=== PATIENT | male | born 1970 | race Caucasian/White ===

== ENCOUNTER 2020-04-15 19:22 | Emergency (ER) | payer MEDICAID ==
--- NOTE | 2020-04-15 20:10 | EDM.PDOC ---
ED HPI GENERAL MEDICAL PROBLEM - General Chief Complaint: Chest Pain Stated Complaint: CHEST PRESSURE DIZZY HEADACHE Time Seen by Provider: 04/15/20 19:32 Source of Information: Reports: Patient, Significant Other (Girlfriend) History Limitations: Reports: No Limitations - History of Present Illness INITIAL COMMENTS - FREE TEXT/NARRATIVE: Mr. Singh is a very pleasant 49-year-old gentleman who now presents to the ED stating that he has had 2 weeks of occasional retrosternal pressure - a discomfort, not a pain - and dizzy spells. Tonight his dizzy spells led to a throbbing sensation in his head and neck. When present, the patient states that his retrosternal chest discomfort will typically last about 2 minutes, and recur only once or twice a day. They may or may not be associated with his dizziness, by which he means lightheadedness. No associated dyspnea, nausea, or diaphoresis, however, the patient does state that he feels anxious when his symptoms are present. He has not identified any positions or activities that will precipitate or alleviate his symptoms - they seem to come on randomly, even when the patient is at rest. He denies any recent limitation in his exertional abilities. No prior similar symptoms. The patient states that he has not taken any [id number] or home remedies to try to treat any of his symptoms. No prior medical evaluation for this complaint. Here in the ED, the patient's initial BP is found to be slightly elevated at 132/52, otherwise, he is hemodynamically stable, afebrile, saturating 99% on room air. Prior to 2 weeks ago, the patient denies having a recent fever, chills, sore throat, ear pain, nasal or sinus congestion, cough, dyspnea, chest pain, palpitations, nausea, vomiting, constipation, diarrhea, abdominal pain, urinary symptoms, recent weight gain or weight loss, recent bloody bowel movements or black bowel movements, recent joint aches, headaches, or rashes. The patient's PCP is BERTIN Rosa, at the [facility]. He has not received an influenza vaccine this season, but agreed to receive one here in the ED. Left Chest Pain Score (Numeric/FACES): 2 - Related Data Allergies Allergy/AdvReac Type Severity Reaction Status Date / Time No Known Allergies Allergy Verified 04/15/20 19:41 Home Meds: Home Meds Acetaminophen/oxyCODONE [Percocet 325-5 MG] 5 - 325 mg PO BEDTIME PRN 04/15/20 [History] Furosemide [Lasix] 100 mg PO DAILY PRN 04/15/20 [History] Losartan/Hydrochlorothiazide [Losartan-HCTZ 50-12.5 MG] 1 tab PO DAILY PRN 04/15/20 [History] Past Medical History Cardiovascular History: Reports: Hypertension (untreated) Respiratory History: Reports: Sleep Apnea (nightly nasal CPAP 13) Gastrointestinal History: Reports: GERD Musculoskeletal History: Reports: Osteoarthritis Psychiatric History: Reports: Anxiety (untreated), Depression (untreated) Endocrine/Metabolic History: Reports: Obesity/BMI 30+ - Past Surgical History HEENT Surgical History: Reports: Tonsillectomy Neurological Surgical History: Reports: Lumbar Spine (fusion) Musculoskeletal Surgical History: Reports: Arthroscopic Knee (left x 2, right x 1), Arthroscopic Procedure (right elbow x 3) Social & Family History - Tobacco Use Tobacco Use Status *Q: Never Tobacco User - Caffeine Use Caffeine Use: Reports: Soda - Alcohol Use Alcohol Use History: Yes Alcohol Use Frequency: Rarely - Recreational Drug Use Recreational Drug Use: No - Living Situation & Occupation Living situation: Reports: Single, with Significant Other (Girlfriend), with Family (His son + his girlfriend's son) Occupation: Disabled ED ROS GENERAL - Review of Systems Review Of Systems: Comprehensive ROS is negative, except as noted in HPI. ED EXAM, GENERAL - Physical Exam Exam: See Below Exam Limited By: No Limitations General Appearance: Alert, WD/WN, No Apparent Distress Eye Exam: Bilateral Eye: EOMI, Normal Inspection Ears: Normal External Exam, Hearing Grossly Normal Nose: Normal Inspection Throat/Mouth: Normal Inspection, Normal Lips, Normal Voice, No Airway Compromise Head: Atraumatic, Normocephalic Neck: Normal Inspection, Full Range of Motion Respiratory/Chest: No Respiratory Distress, Lungs Clear, Normal Breath Sounds, No Accessory Muscle Use, Chest Non-Tender (also, pain not induced with flexion of pectoralis muscles) Cardiovascular: Normal Peripheral Pulses, Regular Rate, Rhythm, No Gallop, No JVD, No Murmur, No Rub Peripheral Pulses: 3+: Radial (L), Radial (R) GI/Abdominal: Normal Bowel Sounds, Soft, Non-Tender (including the epigastrium), No Organomegaly, No Distention, No Abnormal Bruit, No Mass Back Exam: Normal Inspection, Full Range of Motion, NT Extremities: Normal Inspection, Normal Range of Motion, No Pedal Edema, Normal Capillary Refill Neurological: Alert, Oriented, Normal Cognition, No Motor/Sensory Deficits Psychiatric: Normal Affect Skin Exam: Warm, Dry, Intact, Normal Color, No Rash #1 Interpretation EKG Date: 04/15/20 Time: 19:37 Rhythm: NSR Rate (Beats/Min): 97 [place]: Normal P-Wave: Present QRS: Normal ST-T: Normal QT: Normal Comparison: NA - No Prior EKG Course - Vital Signs Last Recorded V/S: Last Vital Signs Temp 36.5 C 04/15/20 19:34 Pulse 94 04/15/20 19:34 Resp 21 H 04/15/20 19:34 BP 132/52 L 04/15/20 19:34 Pulse Ox 99 04/15/20 19:34 - Orders/Labs/Meds Orders: Active Orders 24 hr Category Date Time Status EKG Documentation Completion [RC] STAT Care 04/15/20 19:40 Active Chest 2V [CR] Stat Exams 04/15/20 20:05 Taken Sodium Chloride 0.9% [Normal Saline] 1,000 ml Med 04/15/20 21:45 Active IV ASDIRECTED Medication Orders Sodium Chloride (Normal Saline) 1,000 mls @ 150 mls/hr IV ASDIRECTED TA Last Admin: 04/15/20 21:43 Dose: 150 mls/hr Documented by: DONNY Labs: Laboratory Tests 04/15/20 04/15/20 04/15/20 Range/Units 20:45 20:48 20:48 WBC 9.13 H (4.23-9.07) K/mm3 RBC 5.12 (4.63-6.08) M/mm3 Hgb 14.5 (13.7-17.5) gm/dl Hct 47.2 (40.1-51.0) % MCV 92.2 (79.0-92.2) fl MCH 28.3 (25.7-32.2) pg MCHC 30.7 L (32.2-35.5) g/dl RDW Std Deviation 47.5 H (35.1-43.9) fL Plt Count 353 H (163-337) K/mm3 MPV 9.5 (9.4-12.3) fl Neutrophils % (Manual) 60 (40-60) % Band Neutrophils % 0 (0-10) % Lymphocytes % (Manual) 32 (20-40) % Atypical Lymphs % 2 % Monocytes % (Manual) 1 L (2-10) % Eosinophils % (Manual) 5 (0.8-7.0) % Basophils % (Manual) 0 L (0.2-1.2) Platelet Estimate Adequate Hypochromasia Few PT 11.4 (9.7-12.0) SECONDS INR 1.07 APTT 27.6 (21.7-31.4) SECONDS D-Dimer, Quantitative 0.94 H (0.19-0.50) mg/L Sodium (136-145) mEq/L Potassium (3.5-5.1) mEq/L Chloride (98-107) mEq/L Carbon Dioxide (21-32) mEq/L Anion Gap (5-15) BUN (7-18) mg/dL Creatinine (0.7-1.3) mg/dL Est Cr Clr Drug Dosing mL/min Estimated GFR (MDRD) (>60) mL/min BUN/Creatinine Ratio (14-18) Glucose (74-106) mg/dL Calcium (8.5-10.1) mg/dL Magnesium (1.8-2.4) mg/dl Total Bilirubin (0.2-1.0) mg/dL AST (15-37) U/L ALT (16-63) U/L Alkaline Phosphatase (46-116) U/L Troponin I (0.00-0.056) ng/mL Total Protein (6.4-8.2) g/dl Albumin (3.4-5.0) g/dl Globulin gm/dL Albumin/Globulin Ratio (1-2) 04/15/20 Range/Units 20:48 WBC (4.23-9.07) K/mm3 RBC (4.63-6.08) M/mm3 Hgb (13.7-17.5) gm/dl Hct (40.1-51.0) % MCV (79.0-92.2) fl MCH (25.7-32.2) pg MCHC (32.2-35.5) g/dl RDW Std Deviation (35.1-43.9) fL Plt Count (163-337) K/mm3 MPV (9.4-12.3) fl Neutrophils % (Manual) (40-60) % Band Neutrophils % (0-10) % Lymphocytes % (Manual) (20-40) % Atypical Lymphs % % Monocytes % (Manual) (2-10) % Eosinophils % (Manual) (0.8-7.0) % Basophils % (Manual) (0.2-1.2) Platelet Estimate Hypochromasia PT (9.7-12.0) SECONDS INR APTT (21.7-31.4) SECONDS D-Dimer, Quantitative (0.19-0.50) mg/L Sodium 138 (136-145) mEq/L Potassium 3.9 (3.5-5.1) mEq/L Chloride 101 (98-107) mEq/L Carbon Dioxide 27 (21-32) mEq/L Anion Gap 13.9 (5-15) BUN 16 (7-18) mg/dL Creatinine 1.1 (0.7-1.3) mg/dL Est Cr Clr Drug Dosing 99.22 mL/min Estimated GFR (MDRD) > 60 (>60) mL/min BUN/Creatinine Ratio 14.5 (14-18) Glucose 101 (74-106) mg/dL Calcium 8.9 (8.5-10.1) mg/dL Magnesium 1.9 (1.8-2.4) mg/dl Total Bilirubin 0.4 (0.2-1.0) mg/dL AST 46 H (15-37) U/L ALT 50 (16-63) U/L Alkaline Phosphatase 96 (46-116) U/L Troponin I < 0.017 (0.00-0.056) ng/mL Total Protein 8.3 H (6.4-8.2) g/dl Albumin 3.0 L (3.4-5.0) g/dl Globulin 5.3 gm/dL Albumin/Globulin Ratio 0.6 L (1-2) Meds: Medications Generic Name Dose Route Start Last Admin Trade Name Freq PRN Reason Stop Dose Admin Sodium Chloride 1,000 mls @ 150 mls/hr 04/15/20 21:45 04/15/20 21:43 Normal Saline IV 150 mls/hr ASDIRECTED TA Administration - Re-Assessments/Exams Free Text/Narrative Re-Assessment/Exam: 04/15/20 20:07 The patient's ECG, obtained at triage, is unremarkable, however, the patient is not experiencing chest discomfort at this time. I have ordered a work-up that includes several blood test, and a chest x-ray. 04/15/20 21:26 Two-view chest radiograph appears to be grossly normal. The cardiac silhouette is within normal limits. No pulmonary vascular congestion. No pleural effusions. No focal infiltrate. No pneumothorax. Formal read per the Radiologist pending. The patient's CBC is remarkable for slight leukocytosis of 9.13, but with 0% bandemia. He has mild thrombocytosis of 353,000. His CMP is remarkable for an AST slightly elevated at 46 with an ALT normal at 50, and the remainder of his CMP being unremarkable. His magnesium level is within normal limits at 1.9. His troponin is undetectably low. His D-dimer is mildly elevated at 0.94. 04/15/20 21:34 Test results discussed with the patient and his girlfriend. As above, the only significant abnormality is a mildly elevated D-dimer, which I do not believe is consistent with a pulmonary embolus, however, in order to rule out out, as well as any other potential intrathoracic abnormality, I offered a CT angiogram of the chest, which the patient accepted. The patient will be given IV fluid. 04/15/20 21:46 Notified by the mobile service rv technician that the patient is over the weight limit for the CT. 04/15/20 22:23 The above situation was discussed with the patient and his girlfriend. I offered to try to transfer him to [place], but he would prefer to go home and make arrangements with his PCP as an outpatient. I am recommending that he seek an outpatient cardiac stress test. Departure - Departure Time of Disposition: 22:23 Disposition: Home, Self-Care 01 Condition: Good Clinical Impression: Chest pain of unknown etiology, Elevated d-dimer - Discharge Information *PRESCRIPTION DRUG MONITORING PROGRAM REVIEWED*: Not Applicable *COPY OF PRESCRIPTION DRUG MONITORING REPORT IN PATIENT SUDEEP: Not Applicable Referrals: Heidi Galan [Primary Care Provider] - Forms: ED Department Discharge Additional Instructions: You were seen in the emergency room for 2 weeks of mid-chest pressure, along with dizzy spells, and, tonight, a throbbing headache. Work-up in the ER included several blood tests, a chest x-ray, and an ECG. Your work-up was remarkable for an elevated D-dimer. A CT angiogram of your chest was ordered, however, unfortunately, you are too large for the CT machine. We recommend that you follow-up with your PCP, BERTIN Rosa, to arrange for an outpatient cardiac stress test. She can also arrange for you to undergo an outpatient CT angiogram of your chest at a facility that has a larger CT scan. If any other problems, please do not hesitate to return to the ER. Sepsis Event Note (ED) - Evaluation Sepsis Screening Result: No Definite Risk - Focused Exam Vital Signs: Vital Signs Temp Pulse Resp BP Pulse Ox 04/15/20 19:34 36.5 C 94 21 H 132/52 L 99 - My Orders Last 24 Hours: My Active Orders 04/15/20 19:40 EKG Documentation Completion [RC] STAT 04/15/20 20:05 Chest 2V [CR] Stat 04/15/20 21:45 Sodium Chloride 0.9% [Normal Saline] 1,000 ml IV ASDIRECTED - Assessment/Plan Last 24 Hours: My Active Orders 04/15/20 19:40 EKG Documentation Completion [RC] STAT 04/15/20 20:05 Chest 2V [CR] Stat 04/15/20 21:45 Sodium Chloride 0.9% [Normal Saline] 1,000 ml IV ASDIRECTED
[2020-04-15] MEDS ORDERED: Sodium Chloride 0.9% 1,000 ML IV SCH (21:45)
--- NOTE | 2020-04-16 08:39 | CR ---
Chest: 2 views of the chest were obtained. Comparison: No prior chest imaging is available. Heart size and mediastinum are normal. Lungs are clear with no acute parenchymal change. Scattered degenerative change is noted within the spine. No acute osseous abnormality is appreciated. Impression: 1. Nothing acute is appreciated on 2 view chest x-ray. Diagnostic code #2
== END 2020-04-15 22:35 | disposition home or self-care (01) ==
LOC: SUPCPDRO 19:22 → JD.ED 19:22
DX: R07.9 Chest pain, unspecified (principal); R79.1 Abnormal coagulation profile; I10 Essential (primary) hypertension; E66.9 Obesity, unspecified; Z68.44 Body mass index [BMI] 60.0-69.9, adult
CPT/HCPCS: 36415; 71046; 80053; 83735; 84484; 85007; 85027; 85379; 85610; 85730; 93005; 99285; J7030; 93010; 99284

== ENCOUNTER 2021-04-19 19:23 | Emergency (ER) | payer BC, MEDICAID ==
[2021-04-19 21:06] LABS: CORONAVIRUS COVID-19 NAA POSITIVE (NEGATIVE)
== END 2021-04-19 21:42 | disposition home or self-care (01) ==
LOC: JD.ED 19:23
DX: U07.1 COVID-19 (principal); I10 Essential (primary) hypertension; K21.9 Gastro-esophageal reflux disease without esophagitis; E66.9 Obesity, unspecified; Z68.44 Body mass index [BMI] 60.0-69.9, adult; Z79.899 Other long term (current) drug therapy
CPT/HCPCS: 0241U; 99283